=== PATIENT | female | born 1935 | race Two or more races ===

== ENCOUNTER 2023-07-31 05:47 | Emergency (ER) | payer OTHER ==
[~2023-07-31] VITALS: Ht 152.4 cm; Wt 113.4 kg
[2023-07-31] MEDS ORDERED: LEVOTHYROXINE25 MCG (05:52)
[2023-07-31] MEDS ORDERED: COZAAR100 MG (05:53)
[2023-07-31] MEDS ORDERED: KETOROLAC TROMETHAMINE 60 MG VIAL IM STA (07:03)
[2023-07-31] MEDS ORDERED: DEXAMETHASONE 4 MG TABLET PO STA (07:04)
== END 2023-07-31 08:06 | disposition home or self-care (01) ==
LOC: ER 05:48
DX: G24.3 Spasmodic torticollis (principal)
CPT/HCPCS: 96372; 99282; J1885